=== PATIENT | male | born 1945 | race Caucasian/White ===

== ENCOUNTER → 2018-10-06 | Outpatient (CLI) | payer MEDICARE, BC ==
--- NOTE | 2018-10-06 12:40 | RAD ---
Single AP view the pelvis and 2 views of the right hip without comparison for right hip pain, no known injury. Comment: There is no fracture, dislocation, or acute osseous abnormality identified. No significant degenerative changes are seen. Joints and soft tissues are grossly unremarkable. Phleboliths are evident. Vasectomy clips are noted. IMPRESSION: 1. No acute osseous abnormality of the pelvis or right hip. Electronically signed by: Kaden Vasquez MD (10/06/2018 12:37 PM) [id number]
== END | disposition home or self-care (01) ==
LOC: PMG 09:56
PROVIDERS: ATTEND Family Medicine
DX: I87.8 Other specified disorders of veins (principal)
CPT/HCPCS: 73502

== ENCOUNTER → 2018-11-06 | Outpatient (CLI) | payer MEDICARE, BC ==
--- NOTE | 2018-11-06 15:45 | RAD ---
Bilateral lower extremity arterial duplex ultrasound 11/06/2018 INDICATION: Claudication, bilateral lower extremity pain, possible claudication. Discussion: Ultrasound evaluation of the major arteries of the bilateral lower extremities was performed including color Doppler imaging spectral analysis. There is mild atherosclerotic vascular disease most prominently seen in the common femoral arteries bilaterally. Normal waveforms morphologies are otherwise seen throughout the major arteries of the bilateral lower extremities without evidence of occlusion or hemodynamically significant stenosis. No other focal sonographic abnormalities are identified. IMPRESSION: No sonographic evidence of hemodynamically significant stenosis involving the major arteries of the bilateral lower extremities. Electronically signed by: Yosi Coffey MD (11/06/2018 3:42 PM) [id number]
== END | disposition home or self-care (01) ==
LOC: US 12:04
PROVIDERS: ATTEND Family Medicine
DX: I70.213 Atherosclerosis of native arteries of extremities with intermittent claudication, bilateral legs (principal)
CPT/HCPCS: 93925

== ENCOUNTER → 2018-11-20 | Outpatient (CLI) | payer MEDICARE, BC ==
[~2018-11-20] MED LIST: REGADENOSON 0.4 MG/5 ML DISP.SYRIN. IV ONE
--- NOTE | 2018-11-20 13:36 | RAD ---
MR#: [id number] Date of Study: 11/20/2018 Ordering Physician: ROMERO DHILLON, Referring Physician: YOSHI WILD Tech: INESSA King APPROVED REPORT Test Type: Exercise Stress Nurse/Tech: INESSA King Test Indications: Pre OP Clearance - A Fib Cardiac History: none Medications: see EHR Medical History: see EHR Resting ECG: AFib an acute ischemic changes Resting Heart Rate: 73 bpm Resting Blood Pressure: 143/72mmHg Pretest Chest Pain: None Nurse/Tech Notes Consent: The procedure was explained to the patient in lay terms. Informed consent was witnessed. Melo eout was entered into [employer]. History and Stress Test performed by INESSA King POST EXERCISE Target HR: 124 Max HR: 161 bpm 129% of Maximum Predicted HR: 146 bpm Exercise duration: 5:17 min:sec, Stage Max Blood Pressure: 166/75mmHg Blood Pressure response to exercise: Normal blood pressure response during stress. Chest Pain: No. Arrhythmia: Yes. ST Change: Yes. Deviation: 1mm mm INTERPRETATION Stress EKG Conclusion: No evidence of stress induced EKG changes. Baseline afib with RVR during stres s. Imaging Protocol IMAGE PROTOCOL: Rest Tc-99m/stress Tc-99m 1 day Rest: Stress: Viability: Radiopharm.Tc99m UbgnzquvlYn99t Sestamibi Gunq45iAu 33mCi Duration 15min. 13min. Img Date 11/20/2018 11/20/2018 Inj-Img [id number]. 60min. Post-Injection Exercise: 1 minute Rest Admin Site:IV - Right AntecubitalAdministrator: INESSA King Stress Admin Site: IV - Right AntecubitalAdministrator: INESSA King STRESS DATA End Diast. Vol.84.0mlAv. Heart Rate81.0bpm LVEDV index BSA2.0mlCardiac Output0.1L/min End Syst. Vol.26.0mlCO Index BSA4.7L/min LVESV index BSA0.0mlMyocardial Vcun785.0g Eject. Ufjfxrpo12.0% Stress Rates Pk. Fill Rate4.60EDV/secLVtime Pk. Fill 142.61msec Pk. Empty Rate4.37ESV/secLVtime Pk. Dgsee199.40msec 08/21 Pk. Fill1.34EDV/sec Stress Scores Regional WT0.00Summed WT0.00 Regional WM0.00Summed WM1.00 The rest and stress images show normal perfusion, normal contraction and thickening. LV Perf. Quant 17 Seg. SSS0.00 17 Seg. SRS0.00 17 Seg. SDS0.00 Stress Defect Extent (% LAD)0.00Rest Defect Extent (% LAD)0.00Rev. Defect Extent (% LAD)0.00 Stress Defect Extent (% LCX) 0.00Rest Defect Extent (% LCX)0.00Rev. Defect Extent (% LCX)0.00 Stress Defect Extent (% RCA)0.00Rest Defect Extent (% RCA)0.00Rev. Defect Extent (% RCA)0.00 Stress Defect Extent (% CRESCENCIO)0.00Rest Defect Extent (% CRESCENCIO)0.00Rev. Defect Extent (% CRESCENCIO)0.00 Other Information Quality:Good Risk Assessment: Low Risk Conclusion 1. No evidence of stress induced EKG changes. (baseline afib) 2. Normal perfusion at stress/rest. 3. Normal EF at > 60% 4. Low risk study Signed by : Romero Dhillon, Electronically Approved : 11/20/2018 13:35:32
== END | disposition home or self-care (01) ==
LOC: NM 08:05
PROVIDERS: ATTEND Internal Medicine Cardiovascular Disease
DX: I48.91 Unspecified atrial fibrillation (principal)
CPT/HCPCS: 78452; 93017; 96374; 96375; 96376; A9500

== ENCOUNTER → 2020-04-15 | Outpatient (CLI) | payer MEDICARE, BC ==
--- NOTE | 2020-04-15 15:26 | RAD ---
3 view study of the left knee Clinical indications: Left knee pain. Fall last night. FINDINGS: No acute fracture or dislocation or lytic process is seen. There is mild joint space narrowing and spurring of the medial tibial femoral joint compartment. Degenerative chondrocalcinosis of the lateral meniscus is seen. There is moderate degenerative spurring of the patellofemoral joint compartment. No significant left knee joint effusion is seen. IMPRESSION: Primary degenerative osteoarthritis of the left knee. Electronically signed by: Darryn Soares MD (04/15/2020 3:23 PM) [id number]
== END | disposition home or self-care (01) ==
LOC: PMG 08:19
PROVIDERS: ATTEND Physician Assistant Medical
DX: M17.12 Unilateral primary osteoarthritis, left knee (principal); M11.262 Other chondrocalcinosis, left knee; M76.52 Patellar tendinitis, left knee
CPT/HCPCS: 73562

== ENCOUNTER → 2021-02-09 | Outpatient (CLI) | payer MEDICARE, BC | LOC: LAB 14:49 | PROVIDERS: ATTEND Family Medicine | DX: Z01.818 Encounter for other preprocedural examination (principal) | CPT/HCPCS: 87641 ==

== ENCOUNTER → 2021-05-02 | Outpatient (CLI) | payer MEDICARE, BC ==
--- NOTE | 2021-05-02 14:34 | RAD ---
EXAM: Bilateral diagnostic mammogram; right breast sonogram. HISTORY: 75-year-old male with left breast pain. TECHNIQUE: Full-field digital craniocaudal and mediolateral oblique views of both breasts are obtaine d for evaluation. Computer aided detection was applied. Sonographic imaging of the left breast at the site of reported pain was also performed. COMPARISON: None. BREAST PARENCHYMAL DENSITY: Level A - Mostly fat. FINDINGS: There is no suspicious mass, microcalcification or region of architectural distortion. Ther e is minimal symmetric increased subareolar density likely due to slight gynecomastia. Sonographic imaging of the left breast demonstrates minimal gynecomastia within the retroareolar loca tion. There is no suspicious lesion. IMPRESSION: 1. Minimal symmetric gynecomastia. 2. No suspicious mammographic or sonographic finding. Continued clinical follow-up of palpable abnorm alities is recommended. Negative imaging should not preclude the decision to biopsy a palpable abnorm ality if there is continued concern 3. BI-RADS Category 2: Benign finding(s). If your mammogram demonstrates that you have dense breast tissue, which could hide abnormalities, and if you have other risk factors for breast cancer that have been identified, you might benefit from s upplemental screening tests that may be suggested by your ordering physician. Dense breast tissue, i n and of itself, is a relatively common condition. This information is not provided to cause undue c oncern, but rather to raise your awareness and to promote discussion with your physician regarding th e presence of other risk factors, in addition to dense breast tissue. A report of your mammography re sults will be sent to you and your physician. You should contact your physician if you have any ques tions or concerns regarding this report. Mammography is a sensitive method for finding small breast cancers, but it does not detect them all a nd is not a substitute for careful clinical examination. A negative mammogram does not negate a clin ically suspicious finding and should not result in delay in biopsying a clinically suspicious abnorma lity. PQRS compliance statement - Patient information was entered into a reminder system with a target due date for the next mammogram. "Our facility is accredited by the [employer] Mammography [employer]." Electronically signed by: Felisa Myers MD (05/02/2021 2:32 PM) [id number]
== END ==
LOC: US 12:43
PROVIDERS: ATTEND Physician Assistant Medical
DX: N62 Hypertrophy of breast (principal)
CPT/HCPCS: 76642; 77066